=== PATIENT | female | born 1965 | race Caucasian/White ===

== ENCOUNTER 2023-09-20 15:12 | Emergency (ER) | payer SELFPAY ==
[~2023-09-20] VITALS: Ht 154.9 cm; Wt 75.5 kg
[2023-09-20 15:19] VITALS: TEMP 98.2
[2023-09-20] MEDS ORDERED: CEPHALEXIN500 M1 PO (16:49)
[2023-09-20 16:55] VITALS: BP 141/98; PULSE 75
== END 2023-09-20 16:55 | disposition home or self-care (01) ==
LOC: COL.ER 15:12
DX: S90.852A Superficial foreign body, left foot, initial encounter (principal); W45.8XXA Other foreign body or object entering through skin, initial encounter; Y92.000 Kitchen of unspecified non-institutional (private) residence as the place of occurrence of the external cause

== ENCOUNTER 2023-12-15 14:36 | Observation (INO) | payer SELFPAY ==
[~2023-12-15] VITALS: Ht 154.9 cm; Wt 73.6 kg
[~2023-12-15 14:36] MED LIST: CEPHALEXIN500 M1 PO
[2023-12-15] MEDS ORDERED: Mag/Al Hydrox/Simeth Susp 30 ML CUP PO ONE (16:00)
[2023-12-15] MEDS ORDERED: Pantoprazole 40 MG in NS 10 ML IV ONE (16:00)
[2023-12-15] MEDS ORDERED: Morphine 4 MG/ML VIAL IV PRN (16:00)
[2023-12-15] MEDS ORDERED: Ondansetron 4 MG/2 ML VIAL IV ONE (16:00)
[2023-12-15] MEDS ORDERED: NS 1,000 ML IV ONE (16:00)
[2023-12-15 16:05] LABS: BASO % 0.3 % (0.0-2.0); EOS % 0.1 % (0.0-4.0); GRAN # 10.6 K/mm3 (1.4-6.5); GRAN % 83.9 % (42.2-75.2); HEMATOCRIT 48.5 % (37.0-47.0); HEMOGLOBIN 15.8 g/dl (12.5-16.0); LYMPH # 1.1 K/mm3 (1.2-3.4); LYMPH % 8.3 % (20.0-51.0); MEAN CELL VOLUME 88 fl (80.0-100.0); MEAN CORPUSCULAR HEMOGLOBIN 29 pg (27-31); MEAN CORPUSCULAR HGB CONC 33 g/dl (33.0-37.0); MEAN PLATELET VOLUME 10.7 fl (7.4-10.4); MONO # 0.9 K/mm3 (0.1-0.6); PLATELET COUNT 321 K/mm3 (130-400); REDCELL DISTRIBUTION WIDTH-CV 13.5 % (11.5-14.5)
[2023-12-15 16:40] LABS: URINE APPEARANCE CLEAR (CLEAR/HAZY); URINE BLOOD NEGATIVE (NEGATIVE); URINE COLOR YELLOW (YELLOW); URINE GLUCOSE NEGATIVE (NEGATIVE); URINE KETONE NEGATIVE (NEGATIVE); URINE NITRATE NEGATIVE (NEGATIVE); URINE PROTEIN(semi-quant) TRACE (NEGATIVE); URINE UROBILINOGEN 0.2 E.U/dL (0.2-1.0)
[2023-12-15 17:09] LABS: ALANINE AMINOTRANSFERASE 14 U/L (0-55); ALBUMIN 3.9 g/dL (3.5-5.0); ALKALINE PHOSPHATASE 78 U/L (40-150); ANION GAP 15 mmol/L (7-16); AST,SGOT 20 U/L (5-34); BILIRUBIN,TOTAL 1.9 mg/dL (0.2-1.2); BLOOD UREA NITROGEN 10 mg/dL (10-20); CALCIUM 10.2 mg/dL (8.4-10.2); CHLORIDE 102 mEq/L (98-107); CREATININE, serum 0.83 mg/dL (0.57-1.11); GLUCOSE 117 mg/dL (70-99); POTASSIUM 4.2 mEq/L (3.5-4.5); SODIUM 138 mEq/L (136-145)
[2023-12-15 17:16] LABS: COLLECTION METHOD CLEAN CATCH
[2023-12-15 17:17] LABS: TROPONIN-I < 0.010 ng/mL (0.00-0.033)
[2023-12-15] MEDS ORDERED: NS 64 ML IV SCH (17:36)
[2023-12-15] MEDS ORDERED: Iohexol 300 - 100 ML VIAL IV ONE (17:36)
[2023-12-15] MEDS ORDERED: LR 1,000 ML IV SCH (19:45)
[2023-12-15] MEDS ORDERED: Ondansetron 4 MG/2 ML VIAL IV PRN ×2 (19:45→21:45)
[2023-12-15] MEDS ORDERED: oxyCODONE/Acetaminophen 5-325 MG TAB PO PRN (19:45)
[2023-12-15] MEDS ORDERED: HYDROmorphone 0.5 MG/0.5 ML SYRINGE IV PRN ×2 (19:45→21:45)
--- NOTE | 2023-12-15 21:30 | NUR ---
PT ARRIVED TO ROOM 342 FROM ED & AMBULATED TO BED INDEPENDENTLY. HERE FOR ACUTE CHOLECYSTITIS. VSS. PT DENYING N/V AT THIS TIME. STATES PAIN IS 7/10, NO ORDERS IN, CALLED DR ROWAN & VERBAL ORDERS TO RESUME MEDS THAT WERE CANCELED DURING ED TRANSFER. PT EDUCATED ON NPO STATUS. LR AT 75MLS/HR INFUSING TO LEFT AC. ORINETED TO ROOM. PT DENYING FURTHER NEEDS. CALL LIGHT IN REACH
[2023-12-15 21:39] LABS: LIPASE 12 U/L (8-78)
[2023-12-16] VITALS (13 sets, daily range): BP systolic 85–153; BP diastolic 59–87; PULSE 52–73; TEMP 97.1–99.2
--- NOTE | 2023-12-16 05:44 | NUR ---
PT RESTING IN BED. PAIN CONTROLLED THROUGHOUT THE NIGHT WITH PRN PAIN MEDS PER JUL. PT DENYING FURTHER NEEDS. CALL LIGHT IN REACH
[2023-12-16 06:53] LABS: BASO % 0.3 % (0.0-2.0); EOS % 0.3 % (0.0-4.0); GRAN # 8.4 K/mm3 (1.4-6.5); GRAN % 81.7 % (42.2-75.2); HEMATOCRIT 44.7 % (37.0-47.0); HEMOGLOBIN 14.9 g/dl (12.5-16.0); LYMPH # 0.9 K/mm3 (1.2-3.4); LYMPH % 8.6 % (20.0-51.0); MEAN CELL VOLUME 88 fl (80.0-100.0); MEAN CORPUSCULAR HEMOGLOBIN 29 pg (27-31); MEAN CORPUSCULAR HGB CONC 33 g/dl (33.0-37.0); MEAN PLATELET VOLUME 11.1 fl (7.4-10.4); MONO # 0.9 K/mm3 (0.1-0.6); MONO % 8.9 % (1.7-9.3); PLATELET COUNT 265 K/mm3 (130-400); RED BLOOD COUNT 5.07 M/mm3 (4.10-5.30); REDCELL DISTRIBUTION WIDTH-CV 13.7 % (11.5-14.5)
[2023-12-16] MEDS ORDERED: Indocyanine Green 12.5 MG in Water For Injection,Sterile 2.5 ML IV SCH (07:45)
--- NOTE | 2023-12-16 08:00 | NUR ---
Pt. laying in bed. Pt. is A&Ox3, assessment complete. IV to lt. ac patent, IV fluids infusing per orders. Pt. reported pain at a 10 on pain scale, gave meds per orders. Pt. denies further needs, call light within reach.
[2023-12-16] MEDS ORDERED: droPERidol 2.5 MG/ML 2 ML VIAL IV PRN (08:30)
[2023-12-16] MEDS ORDERED: hydrALAZINE 20 MG/ML 1 ML VIAL IV PRN (08:30)
[2023-12-16] MEDS ORDERED: HYDROmorphone 1 MG/1 ML SYRINGE [PACU/SDC ONLY] IV PRN ×2 (08:30)
[2023-12-16] MEDS ORDERED: fentaNYL 50 MCG/ML 1 ML SYRINGE/VIAL [PACU/SDC ONLY] IV PRN (08:30)
[2023-12-16] MEDS ORDERED: Meperidine 50 MG/ML 1 ML VIAL IV PRN (08:30)
[2023-12-16] MEDS ORDERED: Ondansetron 4 MG/2 ML VIAL IV PRN (08:30)
[2023-12-16] MEDS ORDERED: LR 1,000 ML IV SCH (08:30)
--- NOTE | 2023-12-16 10:30 | NUR ---
Pt. down to OR.
[2023-12-16] MEDS ORDERED: Rocuronium 50 MG/5 ML Multi-Dose VIAL ONE (11:49)
[2023-12-16] MEDS ORDERED: fentaNYL 50 MCG/ML 2 ML VIAL ONE ×2 (11:50→13:32)
[2023-12-16] MEDS ORDERED: dexAMETHasone 10 MG/ML VIAL ONE (11:51)
[2023-12-16] MEDS ORDERED: Ondansetron 4 MG/2 ML VIAL ONE (11:51)
[2023-12-16] MEDS ORDERED: NS 10 ML IV ONE (11:51)
[2023-12-16] MEDS ORDERED: NS 200 ML IV ONE (12:33)
[2023-12-16] MEDS ORDERED: Phenylephrine 10 MG/ML VIAL ONE (12:33)
[2023-12-16] MEDS ORDERED: Iohexol 350 - 100 ML VIAL BILE DUCT ONE (12:35)
--- NOTE | 2023-12-16 12:52 | NUR ---
Data: Patient accepted spiritual care visit offered during Air Sealing Technician rounds. 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 draw tender arrived to take Patient to surgery. Assessment: Worship Science upbringing and creativity through art are important to Patient. Plan of Care: Air Sealing Technician provided supportive listening. Patient thanked Air Sealing Technician for the visit. Chaplains will remain available as needed/requested while Patient is admitted to this hospital.
--- NOTE | 2023-12-16 17:41 | NUR ---
Dr. Pimentel notified of soft pressures. New orders received.
[2023-12-16] MEDS ORDERED: LR 1,000 ML IV ONE (17:45)
[2023-12-16] MEDS ORDERED: Amoxicillin/Clavulanate K+ 875/125 MG TAB PO SCH (18:27)
[2023-12-16] MEDS ORDERED: AMOXICILLIN 8751 TAB PO (18:29)
[2023-12-16] MEDS ORDERED: PERCOCET 325 MG1 TA2 PO (18:29)
--- NOTE | 2023-12-16 20:30 | NUR ---
IVF BOLUS COMPLETED. RECHECK BP WAS 102/67. LR NOW INFUSING AT 75MLS/HR
--- NOTE | 2023-12-16 21:00 | NUR ---
PT A&O X4 LAYING IN BED. VITALS WNL. PT RATING PAIN 12/29, GAVE PRN PAIN MED PER MAR. DENYING N/V. X5 LAP SITES CDI. IVF INFUSING TO LEFT FOREARM. PT DENYING FURTHER NEEDS. CALL LIGHT IN REACH
[2023-12-17 00:22] VITALS: BP_SYST 104
[2023-12-17 03:03] VITALS: BP 119/73; PULSE 57; TEMP 97.5
[2023-12-17 04:10] VITALS: BP_SYST 119
--- NOTE | 2023-12-17 06:16 | NUR ---
PT RESTING IN BED WITH UNLABORED RESP. NO FURTHER C/O PAIN. CALL LIGHT IN REACH
[2023-12-17 08:20] VITALS: BP 97/62; PULSE 101; TEMP 97.9
[2023-12-17 09:00] VITALS: BP_SYST 97
--- NOTE | 2023-12-17 09:00 | NUR ---
Pt. sitting up in bed. Pt. is A&OX3, assessment complete. INT to lt. wrist patent. Pt. with 5 abd. lap sites, well approximated with glue. Pt. reports pain at 2 on pain scale at this time. Pt. denies further needs, call light within reach.
--- NOTE | 2023-12-17 10:56 | NUR ---
SAMIRA met with Pt bedside to discuss discharge planning and complete initial consult. Pt confirmed she has no DPOA but wants to fill one out during stay. DPOA form is in Pt room. Pt NOK decision maker is , but Pt does not want him to make decisions. Ángela Jauregui, sister and chart contact, [phone] is who she appoints. Pt confirmed no insurance, no PCP, and uses [facility] [address] 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 Pt states does not handle stress well which is why she does not have him on the chart. Pt interested in financial assistance for food. Pt states she only eats organic whole foods and is struggling to be able to afford food. SW provided resources. Pt is discharging today but interested in talking to financial assistance. SAMIRA sent email to financial assistance to follow up with Pt. D/C Disposition: Home w. spouse
--- NOTE | 2023-12-17 11:30 | NUR ---
Pt. has met discharge criteria. INT discontinued from lt. wrist. Reviewed and gave discharge packet to the pt. Pt. voices understanding. Pt. dressed and waiting for ride.
[2023-12-17 11:46] VITALS: BP 114/74; PULSE 61; TEMP 98.3
--- NOTE | 2023-12-17 12:49 | NUR ---
Pt. escorted out.
== END 2023-12-17 12:45 | disposition home or self-care (01) ==
LOC: COL.ER 14:36 → SURG 20:03 → COL.ER 20:14 → SURG 20:14
PROVIDERS: Emergency Medicine; ADMIT Surgery
DX: K80.00 Calculus of gallbladder with acute cholecystitis without obstruction (principal)
CPT/HCPCS: G0378; J0690; J1100; J1170; J2270; J2371; J2405; J2470; J2543; J2704; J3010; J7030; J7120; Q9967